=== PATIENT | female | born 1995 | race Caucasian/White ===

== ENCOUNTER 2019-08-04 06:31 | Inpatient (IN) | payer OTHER ==
[~2019-08-04] VITALS: Ht 175.3 cm; Wt 87.3 kg
[2019-08-04] VITALS (47 sets, daily range): BP systolic 126–167; BP diastolic 60–98; PULSE 64–125; TEMP 97.6–98.3
[2019-08-04] MEDS ORDERED: PRENATAL TABLET PO (07:21)
--- NOTE | 2019-08-04 07:45 | NUR ---
0710- Pt arrives on unit ambulatroy for scheduled induction with . Pt changes into gown. 0715- Pt into bed, EFM and TOCO on and tracing. Plan of care explained, questions encouraged and answered. Oriented to room. Assessment completed. IV start with labs drawn. Consents explained and signed. Call light within reach.
[2019-08-04 08:26] LABS: BASO % 0.3 % (0.0-2.0); EOS # 0.1 (0.0-0.7); EOS % 0.7 % (0-4.0); GRAN # 9.6 (1.4-6.5); GRAN % 69.3 % (42.2-75.2); HEMATOCRIT 39.9 % (37.0-47.0); HEMOGLOBIN 13.4 g/dl (12.5-16.0); LYMPH # 2.6 (1.2-3.4); LYMPH % 18.8 % (20.0-51.0); MEAN CELL VOLUME 88 fl (80.0-100.0); MEAN CORPUSCULAR HEMOGLOBIN 30 pg (27.0-31.0); MEAN CORPUSCULAR HGB CONC 34 g/dl (33.0-37.0); MEAN PLATELET VOLUME 12.8 fl (7.4-10.4); MONO # 1.3 (0.1-0.6); MONO % 9.6 % (1.7-9.3); PLATELET COUNT 205 K/mm3 (130-400); RED BLOOD COUNT 4.54 M/mm3 (4.10-5.30); REDCELL DISTRIBUTION WIDTH-CV 12.9 % (11.5-14.5)
--- NOTE | 2019-08-04 15:30 | NUR ---
1520- SVE complete. Pt and room prepped for delivery. Krause removed without difficutly. Pt begins pushing with UCs.
--- NOTE | 2019-08-04 15:51 | NUR ---
1543- Dr Zamora at bedside for delivery. Saranya, Nursery RN at bedside. Pt continues pushing with [facility]. 1551- Spontaneous vaginal delivery of viable male infant, to mother's abd, tended to by nursery RN. Cord blood obtained. Pitocin off. 1555- Spontaneous delivery of placenta. Pitocin restarted at 333ml/hr. Fundus massaged to firm by . 2nd degree repaired by MD. Pericare completed. Ice pack and clean chux under Pt. Call light within reach.
--- NOTE | 2019-08-04 18:00 | NUR ---
1800- Pt ambulates independently to bathroom with standby assist x1. Unable to void at this time. Pericare completed and explained. Peripad and underwear on. Clean gown on. Pt ambulates back to bed. Starts feeling lightheaded. Encouraged to semi-fowlwer position, wash cloth to neck, fan on. 1814- Pt taken to room via wheelchair. Oriented to room. Call light within reach.
[2019-08-05] VITALS: BP 111/58; PULSE 78; TEMP 98.4
--- NOTE | 2019-08-05 | NUR ---
Report given to LESLIE Iyer.
[2019-08-05 04:00] VITALS: BP 126/71; PULSE 89; TEMP 97.9
[2019-08-05 08:00] VITALS: BP 123/78; PULSE 77; TEMP 98.1
[2019-08-05] MEDS ORDERED: IBU600 MG PO (09:35)
--- NOTE | 2019-08-05 11:18 | NUR ---
Initial visit; Family thanked Entry Level Programmer for offering congratulations and God's blessings for the of their son. Entry Level Programmer thanked family for choosing [facility].
[2019-08-05 13:23] VITALS: BP 125/75; PULSE 83; TEMP 97.9
[2019-08-05 16:37] VITALS: BP 136/85; PULSE 80; TEMP 97.9
[2019-08-05 19:15] VITALS: BP 136/80; PULSE 79; TEMP 97.6
--- NOTE | 2019-08-05 19:15 | NUR ---
Pt just completed feeding and feels confident on feeding now and wanting to discharge home now. VS and assessment completed. Discharge instructions explained to pt and who verbalize their understanding. Denies any questions at this time. 1940: Pt ambulatory off unit with spouse and range technician to discharge home with .
== END 2019-08-05 19:40 | disposition home or self-care (01) | DRG 807 ==
LOC: LDR 06:31 → OB 07:04
PROVIDERS: ADMIT Obstetrics & Gynecology
PROC: 10E0XZZ Delivery of Products of Conception, External Approach (ICD-10-PCS; principal; 2019-08-04)
PROC: 0KQM0ZZ Repair Perineum Muscle, Open Approach (ICD-10-PCS; 2019-08-04)
PROC: 10907ZC Drainage of Amniotic Fluid, Therapeutic from Products of Conception, Via Natural or Artificial Opening (ICD-10-PCS; 2019-08-04)
DX: O99.62 Diseases of the digestive system complicating childbirth (principal); Z37.0 Single live birth; O70.1 Second degree perineal laceration during delivery; K58.9 Irritable bowel syndrome, unspecified; Z3A.39 39 weeks gestation of pregnancy
CPT/HCPCS: J2405; J2590; J7120

== ENCOUNTER → 2021-03-30 | Outpatient (CLI) | payer OTHER ==
[~2021-03-30] MED LIST: IBU600 MG PO; PRENATAL TABLET PO
== END ==
LOC: ZCOL.LAB 07:22
DX: Z20.822 Contact with and (suspected) exposure to COVID-19 (principal)